=== PATIENT | male | born 1950 | race Caucasian/White ===

== ENCOUNTER 2020-01-14 10:42 | Emergency (ER) | payer MEDICARE, OTHER ==
--- NOTE | 2020-01-14 10:57 | NUR ---
PT BIB EMS FOR WEAKNESS AND RIGHT SIDE FACIAL DROOP X 2 DAYS. PTS FRIEND CALLED 911 TODAY BECAUSE HE WAS SLURRING HIS WORDS AND HAD A RIGHT SIDE FACIAL DROOP. LAST KNOW WELL TIME WAS LAST NIGHT PER NEIGHBOR. PT IS HYPERTENSIVE UPON ARRIVAL. EKG COMPLETE. PT IS CONNECTED TO MONITORING EQUIPMENT
[2020-01-14 11:33] LABS: BASOPHILS # (AUTO) 0.03 x10^3/uL (0-0.1); BASOPHILS % (AUTO) 0 % (0-1); EOSINOPHILS # (AUTO) 0.02 x10^3/uL (0-0.4); EOSINOPHILS % (AUTO) 0 % (1-7); LYMPHOCYTES # (AUTO) 2.37 x10^3/uL (1-3.4); LYMPHOCYTES % (AUTO) 26 % (22-44); MD NO; MEAN CORPUSCULAR HEMOGLOBIN 31.3 pg (27.5-34.5); MEAN CORPUSCULAR HGB CONC 33.9 g/dL (33.2-36.2); MEAN CORPUSCULAR VOLUME 92.2 fL (81-97); MEAN PLATELET VOLUME 8.8 fL (7.4-10.4); MONOCYTES # (AUTO) 0.86 x10^3/uL (0.2-0.8); MONOCYTES % (AUTO) 9 % (2-9); NEUTROPHILS # (AUTO) 6.02 x10^3/uL (1.8-6.8); NEUTROPHILS % (AUTO) 65 % (42-75); PLATELET COUNT 238 x10^3/uL (130-400); RED BLOOD COUNT 5.14 x10^6/uL (4.38-5.82); RED CELL DISTRIBUTION WIDTH 13.3 % (9.4-14.8)
[2020-01-14 11:44] LABS: ANION GAP 8 mmol/L (5-15); CALCIUM 9.4 mg/dL (8.5-10.1); CHLORIDE 106 mmol/L (98-107); CREATININE 1.35 mg/dL (0.7-1.3)
[2020-01-14 11:45] LABS: ALBUMIN 3.9 g/dL (3.4-5.0)
--- NOTE | 2020-01-14 11:47 | NUR ---
PT RESTING IN [facility]. VSS. NAD.
[2020-01-14 11:49] LABS: TROPONIN I < 0.015 ng/mL (0.000-0.045)
[2020-01-14 14:13] VITALS: BP 163/73
--- NOTE | 2020-01-14 14:13 | NUR ---
PT RESTING IN [facility]. VSS. UP FOR RECHECK. WATER PROVIDED
--- NOTE | 2020-01-14 14:32 | NUR ---
PT TO MRI AT THIS TIME
--- NOTE | 2020-01-14 15:23 | NUR ---
BREAK RN: PT RETURNED FROM MRI, PT REFUSING TO SIT IN GURNEY OR BE ON MONITOR AT THIS TIME.
[2020-01-14] MEDS ORDERED: ASPIRIN 81 MG TABLET CHEW ONE (15:25)
--- NOTE | 2020-01-14 15:27 | NUR ---
BREAK RN: PT MEDICATED PER MAR
[2020-01-14] MEDS ORDERED: ASPIRIN 81 MG TABLET CHEW PO ONE (15:30)
[2020-01-14] MEDS ORDERED: PLEASE ENTER WEIGHT MC SCH (16:00)
== END 2020-01-14 16:16 | disposition left against medical advice (07) ==
LOC: ED 12:05
DX: I63.9 Cerebral infarction, unspecified (principal); R47.81 Slurred speech; R51 Headache; Z53.29 Procedure and treatment not carried out because of patient's decision for other reasons
CPT/HCPCS: 36415; 70450; 70551; 80048; 82040; 84484; 85025; 93005; 99285